=== PATIENT | female | born 1985 | race Caucasian/White ===

== ENCOUNTER 2023-04-16 09:03 | Inpatient (IN) | payer BC ==
[2023-04-16] MEDS ORDERED: Oxytocin 30 units/NS 500 ML 500 ML ONE (09:31)
[2023-04-16] MEDS ORDERED: Lidocaine 1% (PF) 30 ML VIAL ONE ×2 (09:34→10:01)
[2023-04-16] MEDS ORDERED: fentaNYL/Ropivacaine Epidural 0 ML ONE (09:34)
[2023-04-16 09:40] VITALS: BMI 32.8
[2023-04-16] MEDS: Lidocaine 1% (PF) 30 ML VIAL SC PRN ×2 (09:50→10:04)
[2023-04-16 09:58] LABS: Hematocrit 38.3 % (34.9-44.5); Hemoglobin 13.4 g/dL (12.0-15.5); Mean Corpuscular Hemoglobin 31.1 pg (27.0-33.0); Mean Corpuscular Volume 88.9 fl (81.6-98.3); Mean Platelet Volume 11.8 fl (7.4-10.4); Platelet Count 179 10x3/uL (150-450); RBC Distribution Width 13.1 % (11.5-14.5); Red Blood Cell (RBC) Count 4.31 10x6/uL (3.90-5.03); White Blood Cell (WBC) Count 14.4 10x3/uL (3.5-10.5)
[2023-04-16] MEDS ORDERED: Diphenoxylate HCl/Atropine Tablet PO PRN ×2 (10:26)
[2023-04-16] MEDS ORDERED: Ondansetron PF 4 MG/2 ML Vial IVP PRN ×2 (10:26→10:56)
[2023-04-16] MEDS ORDERED: HYDROcodone/Acetaminophen 5/325 mg Tablet PO PRN ×2 (10:26)
[2023-04-16] MEDS ORDERED: Carboprost 250 MCG/ML AMP IM PRN (10:26)
[2023-04-16] MEDS ORDERED: hydrALAZINE 20 MG/ML VIAL SLOW IVP PRN ×2 (10:26→10:56)
[2023-04-16] MEDS ORDERED: Ibuprofen 800 MG TAB PO PRN (10:26)
[2023-04-16] MEDS ORDERED: Misoprostol 200 MCG TAB PR PRN (10:26)
[2023-04-16] MEDS ORDERED: Acetaminophen 500 MG TAB PO PRN (10:26)
[2023-04-16] MEDS ORDERED: Docusate 100 MG CAP PO PRN (10:26)
[2023-04-16] MEDS ORDERED: Promethazine HCl 25 MG/ML VIAL IM PRN (10:26)
[2023-04-16] MEDS ORDERED: fentaNYL 50 mcg/mL 1 mL Vial SLOW IVP PRN ×2 (10:26→18:25)
[2023-04-16] MEDS ORDERED: Lactated Ringer's 1,000 ML IV SCH (10:30)
[2023-04-16] MEDS ORDERED: Oxytocin 30 units/NS 500 ML 500 ML IV SCH ×2 (10:30→11:00)
[2023-04-16] MEDS ORDERED: diphenhydrAMINE 25 MG CAP PO PRN (10:56)
[2023-04-16] MEDS ORDERED: Lanolin Ointment 7 GM TUBE TOP PRN (10:56)
[2023-04-16] MEDS ORDERED: Milk Of Magnesia 30 ML UDCUP PO PRN (10:56)
[2023-04-16] MEDS ORDERED: Misoprostol 200 MCG TAB VAG PRN (10:56)
[2023-04-16] MEDS ORDERED: Boostrix 0.5 ML (Tdap) VIAL (>/=7 yrs of age) IM ONE (10:56)
[2023-04-16] MEDS ORDERED: Bisacodyl 10 MG SUPP PR PRN (10:56)
[2023-04-16] MEDS ORDERED: Zolpidem Tartrate 5 MG TAB PO PRN (10:56)
[2023-04-16] MEDS ORDERED: Benzocaine-Menthol 82.5 ML CAN TOP PRN (10:56)
[2023-04-16] MEDS ORDERED: Preparation H Ointment 28 GM TUBE PR PRN (10:56)
[2023-04-16 11:06] LABS: HBSAg Index 0.12 S/CO (0-0.99); Hep B Surf Ag - L&D Non-Reactive S/CO (NonReactive)
[2023-04-16 11:07] LABS: Syphilis Antibody Nonreactive (Nonreactive); Syphilis Antibody Index 0.04 S/CO (<1.00 Non-Reactive)
[2023-04-16 11:10] LABS: HIV (1/2) Antibody/Antigen Non-Reactive (NonReactive); HIV 1/2 INDEX 0.16 S/CO (<1.00)
[2023-04-16] MEDS: HYDROcodone/Acetaminophen 5/325 mg Tablet PO PRN ×2 (11:42→16:34)
[2023-04-16] MEDS: Ibuprofen 800 MG TAB PO SCH ×2 (15:09→21:17)
[2023-04-16] MEDS ORDERED: Tranexamic Acid 1,000 MG/10 ML VIAL ONE (18:20)
[2023-04-16] MEDS ORDERED: Tranexamic Acid 1,000 MG/10 ML VIAL IVP SCH (18:30)
[2023-04-16 20:09] LABS: Hematocrit 23.2 % (34.9-44.5); Hemoglobin 8.1 g/dL (12.0-15.5)
[2023-04-16] MEDS: Ferrous Sulfate 325 MG TAB PO SCH (20:31)
[2023-04-16] MEDS: Docusate 100 MG CAP PO SCH (21:17)
[2023-04-17] MEDS: HYDROcodone/Acetaminophen 5/325 mg Tablet PO PRN ×4 (00:55→21:53)
[2023-04-17 04:40] LABS: Hematocrit 20.3 % (34.9-44.5); Hemoglobin 6.9 g/dL (12.0-15.5); Mean Corpuscular Hemoglobin 30.7 pg (27.0-33.0); Mean Corpuscular Volume 90.2 fl (81.6-98.3); Mean Platelet Volume 12.2 fl (7.4-10.4); Platelet Count 160 10x3/uL (150-450); RBC Distribution Width 13.2 % (11.5-14.5); Red Blood Cell (RBC) Count 2.25 10x6/uL (3.90-5.03); White Blood Cell (WBC) Count 15.3 10x3/uL (3.5-10.5)
[2023-04-17] MEDS: Ibuprofen 800 MG TAB PO SCH ×3 (06:00→21:49)
[2023-04-17] MEDS: Docusate 100 MG CAP PO SCH ×2 (08:50→21:49)
[2023-04-17] MEDS: Prenatal Vitamin 1 TAB PO SCH (08:50)
[2023-04-17] MEDS: Ferrous Sulfate 325 MG TAB PO SCH ×2 (08:51→17:59)
[2023-04-18 06:06] LABS: Critical Call w/ Read Back 3NW.RM; Hematocrit 15.9 % (34.9-44.5); Hemoglobin 5.4 g/dL (12.0-15.5)
[2023-04-18] MEDS: Ibuprofen 800 MG TAB PO SCH (06:24)
[2023-04-18 07:36] VITALS: BP 92/55; TEMP 97.9
[2023-04-18] MEDS: Prenatal Vitamin 1 TAB PO SCH (08:20)
[2023-04-18] MEDS: Docusate 100 MG CAP PO SCH (08:21)
[2023-04-18] MEDS: Ferrous Sulfate 325 MG TAB PO SCH (08:21)
[2023-04-18] MEDS: HYDROcodone/Acetaminophen 5/325 mg Tablet PO PRN (08:21)
== END 2023-04-18 14:00 | disposition home or self-care (01) | DRG 807 ==
LOC: CSHLD/OP 09:03 → CSHLD 09:45 → CSHPED 13:06
PROVIDERS: ADMIT Obstetrics & Gynecology; ATTEND Obstetrics & Gynecology
PROC: 10E0XZZ Delivery of Products of Conception, External Approach (ICD-10-PCS; principal; 2023-04-16)
PROC: 0W8NXZZ Division of Female Perineum, External Approach (ICD-10-PCS; 2023-04-16)
PROC: 10907ZC Drainage of Amniotic Fluid, Therapeutic from Products of Conception, Via Natural or Artificial Opening (ICD-10-PCS; 2023-04-16)
DX: O70.0 First degree perineal laceration during delivery (principal); Z37.0 Single live birth; Z3A.39 39 weeks gestation of pregnancy; Z88.1 Allergy status to other antibiotic agents
CPT/HCPCS: 36415; 51702; 85014; 85018; 85027; 86780; 86850; 86900; 86901; 87340; 87389; 99285; J2001; J2590; J3010